=== PATIENT | male | born 1975 | race Caucasian/White ===

== ENCOUNTER 2018-02-01 10:02 | Observation (INO) ==
[2018-02-01] MEDS ORDERED: ASPIRIN 325 MG TABLET PO STA (10:39)
[2018-02-01] MEDS ORDERED: ENOXAPARIN 100 MG/ML SYRINGE SUBCUT STA (10:39)
[2018-02-01] MEDS ORDERED: KETOROLAC 30 MG/1 ML VIAL IV STA (10:39)
[2018-02-01 10:45] LABS: Basophils # 0.1 10*3/uL (0.0-0.2); Basophils % 0.7 % (0.0-0.8); Eosinophils # 0.2 10*3/uL (0.0-0.87); Eosinophils % 3.2 % (0.00-10.9); Hematocrit 47.6 VOL% (42.0-52.0); Hemoglobin 15.9 GM/DL (14.0-18.0); Immature Granulocytes % 0.1 %; Immature Granulocytes Absolute 0.01 #; Lymphocytes # 1.2 10*3/uL (1.4-4.0); Lymphocytes % 17.6 % (21.2-54.2); Mean Corpuscular HGB Conc 33.4 GM/DL (32-36); Mean Corpuscular Hemoglobin 29 PG (27-34); Mean Platelet Volume 9.7 FL (9.6-12.0); Monocytes # 0.4 10*3/uL (0.11-0.8); Monocytes % 6.2 % (1.7-12.7); Neutrophils # 4.9 10*3/uL (1.4-7.4); Neutrophils % 72.2 % (38.7-73.9); Platelet Count 332 T/CUMM (130-400); Red Blood Count 5.41 MC/CUMM (3.8-5.5); Red Cell Distribution Width 12.7 % (9.3-17.3); White Blood Count 6.8 T/CUMM (4-12)
[2018-02-01] MEDS ORDERED: ASPIRIN 325 MG TABLET ONE (10:45)
[2018-02-01] MEDS ORDERED: ENOXAPARIN 120 MG/0.8 ML SYRINGE SUBCUT ONE (10:45)
[2018-02-01] MEDS ORDERED: KETOROLAC 30 MG/1 ML VIAL ONE (10:45)
[2018-02-01 11:02] LABS: Albumin 4.2 G/DL (3.4-5.0); Bilirubin,Total 0.5 MG/DL (0.2-1.0); Calcium 9.5 MG/DL (8.5-10.1); Osmolality,Calculated 275.8 MOS/KG (273-304); PT Patient Result 10.5 SECS; Partial Thromboplastin Time 27.3 SECS (0-40); Potassium 4.2 MMOL/L (3.5-5.1); Total Protein 7.9 G/DL (6.4-8.3)
[2018-02-01] MEDS ORDERED: ACETAMINOPHEN 325 MG TABLET PO PRN (14:05)
[2018-02-01] MEDS ORDERED: LORazepam 1 MG TABLET PO PRN (14:05)
[2018-02-01] MEDS ORDERED: ONDANSETRON 4 MG/2 ML VIAL IV PRN (14:05)
[2018-02-01] MEDS ORDERED: NITROGLYCERIN SL 0.4 MG TABLET SL PRN (14:47)
[2018-02-01] MEDS: PANTOPRAZOLE 40 MG TABLET PO SCH (15:04)
[2018-02-01] MEDS: amLODIPine 5 MG TABLET PO SCH (15:04)
[2018-02-01] MEDS: SODIUM CHLORIDE 0.9% 1,000 ML IV SCH (15:04)
[2018-02-01] MEDS: METOPROLOL TARTRATE 50 MG TABLET PO SCH ×2 (15:04→20:20)
[2018-02-01] MEDS: ENOXAPARIN 40 MG/0.4 ML SYRINGE SUBCUT SCH (15:06)
[2018-02-01 15:53] LABS: Troponin I Only < 0.015 NG/ML (0.00-0.045)
[2018-02-02] MEDS: METOPROLOL TARTRATE 50 MG TABLET PO SCH ×3 (02:58→13:26)
[2018-02-02 05:03] LABS: Basophils # 0.1 10*3/uL (0.0-0.2); Eosinophils # 0.4 10*3/uL (0.0-0.87); Eosinophils % 5.5 % (0.00-10.9); Hematocrit 41.7 VOL% (42.0-52.0); Hemoglobin 14.2 GM/DL (14.0-18.0); Immature Granulocytes % 0.4 %; Immature Granulocytes Absolute 0.03 #; Lymphocytes % 28.1 % (21.2-54.2); Mean Corpuscular HGB Conc 34.1 GM/DL (32-36); Mean Corpuscular Hemoglobin 30 PG (27-34); Mean Corpuscular Volume 86.7 FL (87-102); Mean Platelet Volume 9.9 FL (9.6-12.0); Monocytes # 0.5 10*3/uL (0.11-0.8); Monocytes % 6.9 % (1.7-12.7); Neutrophils # 4.2 10*3/uL (1.4-7.4); Neutrophils % 58.1 % (38.7-73.9); Platelet Count 312 T/CUMM (130-400); Red Blood Count 4.81 MC/CUMM (3.8-5.5); Red Cell Distribution Width 12.8 % (9.3-17.3); White Blood Count 7.2 T/CUMM (4-12)
[2018-02-02 05:38] LABS: Calcium 8.8 MG/DL (8.5-10.1); Osmolality,Calculated 278.7 MOS/KG (273-304); Potassium 4.1 MMOL/L (3.5-5.1)
[2018-02-02 06:09] LABS: Risk Ratio 6.48
[2018-02-02] MEDS ORDERED: ASPIRIN EC 81 MG TABLET PO SCH (09:00)
[2018-02-02] MEDS: amLODIPine 5 MG TABLET PO SCH (09:03)
[2018-02-02] MEDS: PANTOPRAZOLE 40 MG TABLET PO SCH (09:03)
[2018-02-02] MEDS ORDERED: MELOXICAM 7.5 MG TABLET PO SCH (11:00)
[2018-02-02] MEDS: SODIUM CHLORIDE 0.9% 1,000 ML IV SCH (12:16)
[2018-02-02] MEDS: ENOXAPARIN 40 MG/0.4 ML SYRINGE SUBCUT SCH (13:26)
[2018-02-02 16:08] VITALS: BP 145/84
[2018-02-02] MEDS ORDERED: OMEGA 3 ACID ETHYL ESTERS 1 GM CAPSULE PO SCH (21:00)
== END 2018-02-02 19:15 | disposition home or self-care (01) ==
LOC: N.EDINP 10:02 → N.ED 10:02 → N.4E 13:40
PROVIDERS: ADMIT Internal Medicine; ATTEND Internal Medicine